=== PATIENT | male | born 1955 | race Caucasian/White ===

== ENCOUNTER → 2016-10-03 | Day surgery (SDC) | payer MEDICARE, BC ==
[~2016-10-03] MED LIST: ALLE30TA3 PO; BUPIVACAINE/EPINEPHRINE 0.5% PF 30 ML VIAL ONE; CENTTAB9 PO; FLON0.053; LACTATED RINGER'S 1000 ML INJ 1,000 ML ONE; LOVAZA PO; MIDAZOLAM HCL 2 MG/2 ML VIAL ONE; PROM6.257 PO; PROPOFOL 200 MG/20 ML AMP IV ONE; RAMI10CA PO; ZITH250T PO; ceFAZolin INJ 1,000 MG VIAL ONE
--- NOTE | 2016-10-04 12:48 | MP ---
cc: GOLD BERGER Corrected Copy: 10/16/16 DATE OF SURGERY October 03, 2016 PREOPERATIVE DIAGNOSIS Left knee medial and lateral meniscus tear. POSTOPERATIVE DIAGNOSES Left knee medial and lateral meniscus tear. PROCEDURE Left knee arthroscopic partial medial and lateral meniscectomy. SURGEON Dr. Gold Berger ANESTHESIA General. ESTIMATED BLOOD LOSS Less than 10 cc. TOURNIQUET TIME 0. COMPLICATIONS None. JUSTIFICATION The patient is a 61-year male who injured the left knee, had persistence of pain and swelling with failure of conservative treatment. Clinical exam as well as MRI confirmed the above-named findings. The patient was counseled as to the risks, benefits and alternatives of the above-named proposed surgical procedure. He did wish to proceed with surgery. PROCEDURE IN DETAIL Written consent was obtained. The patient was identified by name, placed supine on the operating room table. General anesthesia was administered to the patient as well as 1 gram of IV Ancef. The left leg was carefully placed in a well-padded leg mace, the left lower extremity prepped and draped using isopropyl alcohol, Hibiclens solution and DuraPrep solution. 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 The medial compartment revealed a large complex tear of the posterior horn and medial meniscus. An arthroscopic biter followed by an arthroscopic shaver was introduced into the medial compartment to perform partial medial meniscectomy. The meniscal rim was probed and noted to be stable. There was evidence of diffuse grade 2 chondromalacia in the medial femoral condyle. The intercondylar notch revealed the anterior and posterior cruciate ligaments to be intact. The lateral compartment revealed a complex tear mid-body lateral meniscus extending into the anterior and posterior horns. An arthroscopic shaver was introduced into the lateral compartment to perform partial lateral meniscectomy. This was probed and noted to be stable. There was evidence of a small focal grade 2 chondromalacia lesion in the lateral femoral condyle. At the conclusion of the surgical procedure, 30 cc of 0.5% Marcaine with epinephrine was injected into the knee joint. The arthroscopic portals were closed with 3-0 Prolene suture. Sterile dressings were applied. The patient tolerated the procedure well. No intraoperative complications noted. MD JESSICA Swift/ROGERIO /4:41 PM /10:26 AM
== END | disposition home or self-care (01) ==
LOC: ESDC 13:40
PROVIDERS: ATTEND Orthopaedic Surgery Sports Medicine
DX: S83.231A Complex tear of medial meniscus, current injury, right knee, initial encounter (principal); S83.271A Complex tear of lateral meniscus, current injury, right knee, initial encounter
CPT/HCPCS: 01400; 29880; J0690; J2250; J3010; J7120